=== PATIENT | female | born 1990 | race Caucasian/White ===

== ENCOUNTER 2017-05-12 15:46 | Emergency (ER) | payer BC ==
[~2017-05-12] VITALS: Ht 163.8 cm; Wt 111.0 kg
[~2017-05-12 15:46] MED LIST: NOHOMEMEDS; ZOFRAN4 MG PO
[2017-05-12 16:44] LABS: BASOPHIL COUNT 0.1 K/uL (0-0.1); EOSINOPHIL (%) 1.3 % (0-5); EOSINOPHIL COUNT 0.3 K/uL (0-0.3); HEMATOCRIT 44.3 % (36.0-46.0); IMMATURE GRANULOCYTE (%) 1.8 % (0.0-0.7); IMMATURE GRANULOCYTE COUNT 0.4 K/uL; INSTRUMENT ABS NEUTROPHIL CT 17.7 K/uL; LYMPHOCYTE COUNT 4.6 K/uL (1.0-2.8); MCH 31.9 PG (29.0-34.0); MCHC 33.4 G/DL (30.0-36.0); MCV 95.5 FL (83-99); MEAN PLAT.VOLUME 10.9 uM^3 (9.5-12.4); MONOCYTE (%) 4.8 % (3-12); MONOCYTE COUNT 1.2 K/uL (0-0.8); NEUTROPHIL (%) 72.6 % (45-76); NEUTROPHIL COUNT 17.7 K/uL (1.8-6.4); PLATELET COUNT 243 K/uL (156-360); RBC DIS.WIDTH-CV 12.8 % (11.8-14.6); RBC DIS.WIDTH-SD 44.4 % (39-53); RED BLOOD COUNT 4.64 M/uL (3.80-5.20); WHITE BLOOD COUNT 24.3 K/uL (4.1-10.2)
[2017-05-12 16:53] LABS: CHLORIDE 104 mEq/L (99-109); POTASSIUM 3.9 mEq/L (3.7-5.4); SODIUM 136 mEq/L (136-147)
[2017-05-12 16:54] LABS: GLUCOSE 122 mg/dL (70-99)
[2017-05-12 16:56] LABS: ANION GAP 8 MEQ/L (2-14)
[2017-05-12 16:58] LABS: GFR ESTIMATE (CALCULATED) > 59 mL/min/
[2017-05-12 16:59] LABS: UREA NITROGEN (BUN) 9 mg/dL (9-23)
[2017-05-12 17:06] LABS: QUANTITATIVE HCG < 4.0 MIU/ML
[2017-05-12] MEDS ORDERED: TRETINOIN20 G1 TP (20:03)
[2017-05-12] MEDS ORDERED: SPIRONOLACTONE100 MG PO (20:07)
[2017-05-12] MEDS ORDERED: SPIRONOLACTONE25 MG PO (20:07)
[2017-05-12] MEDS ORDERED: PROAIR HFA8.5 GM IH (20:08)
[2017-05-12] MEDS ORDERED: YAZ 28 TABLET1 EACH PO (20:09)
[2017-05-12] MEDS ORDERED: VISINE A.C300 DROP/1 BOTH EYES (20:09)
[2017-05-13 01:29] VITALS: BP 107/62
[2017-05-13 04:02] VITALS: BP 121/60
[2017-05-13 08:19] VITALS: BP 124/71
[2017-05-13 10:46] LABS: HEMATOCRIT 41.6 % (36.0-46.0); MCH 32.7 PG (29.0-34.0); MCHC 32.9 G/DL (30.0-36.0); MCV 99.3 FL (83-99); MEAN PLAT.VOLUME 11.5 uM^3 (9.5-12.4); PLATELET COUNT 221 K/uL (156-360); RED BLOOD COUNT 4.19 M/uL (3.80-5.20); WHITE BLOOD COUNT 20.5 K/uL (4.1-10.2)
[2017-05-13] MEDS ORDERED: PERCOCET 5/31 TABLET PO (13:02)
[2017-05-13] MEDS ORDERED: BACTRIM,SEPT1 TABLET PO (13:02)
[2017-05-13] MEDS ORDERED: MOTRIN600 MG PO (13:02)
[2017-05-13 16:26] VITALS: BP 124/75
[2017-05-14 00:11] VITALS: BP 114/64
[2017-05-14 06:42] LABS: HEMATOCRIT 39.3 % (36.0-46.0); MCH 32.5 PG (29.0-34.0); MCHC 32.3 G/DL (30.0-36.0); MCV 100.5 FL (83-99); MEAN PLAT.VOLUME 11.2 uM^3 (9.5-12.4); PLATELET COUNT 232 K/uL (156-360); RBC DIS.WIDTH-CV 13.2 % (11.8-14.6); RBC DIS.WIDTH-SD 47.8 % (39-53); RED BLOOD COUNT 3.91 M/uL (3.80-5.20); WHITE BLOOD COUNT 19.8 K/uL (4.1-10.2)
[2017-05-14 07:20] VITALS: BP 103/63
[2017-05-14 08:50] VITALS: BP 120/74
== END 2017-05-14 12:20 | disposition home or self-care (01) ==
LOC: EME 15:46 → EDOF 20:55 → 2EAST 20:55 → EDOF 20:55 → 2EAST 05-13 00:21
PROVIDERS: Physician Assistant; Physician Assistant Surgical
PROC: 0H9HXZZ Drainage of Right Upper Leg Skin, External Approach (ICD-10-PCS; principal; 2017-05-12)
DX: R65.10 Systemic inflammatory response syndrome (SIRS) of non-infectious origin without acute organ dysfunction (principal); L02.415 Cutaneous abscess of right lower limb; L03.115 Cellulitis of right lower limb; D72.829 Elevated white blood cell count, unspecified; L73.2 Hidradenitis suppurativa
CPT/HCPCS: 73701; 80048; 83605; 84702; 85025; 85027; 87040; 87070; 87075; 87076; 87205; 94640; 99281; 99285; G0378; J0330; J0690; J1100; J1170; J1200; J1650; J1885; J2405; J2543; J3010; J3370; J3480; J7030

== ENCOUNTER 2018-07-25 16:49 | Emergency (ER) | payer OTHER ==
[~2018-07-25] VITALS: Ht 162.6 cm; Wt 110.0 kg
[~2018-07-25 16:49] MED LIST changes: +BACTRIM,SEPT1 TABLET PO; +MOTRIN600 MG PO; +PERCOCET 5/31 TABLET PO; +PROAIR HFA8.5 GM IH; +SPIRONOLACTONE100 MG PO; +SPIRONOLACTONE25 MG PO; +TRETINOIN20 G1 TP; +VISINE A.C300 DROP/1 BOTH EYES; +YAZ 28 TABLET1 EACH PO
[2018-07-25 18:46] LABS: APPEARANCE SL.HAZY ((CLEAR)); BILIRUBIN NEGATIVE; BLOOD NEGATIVE; COLOR YELLOW ((YELLOW)); GLUCOSE (STRIP) NEGATIVE; KETONES 5; LEUKOCYTES TRACE; NITRITE NEGATIVE; PROTEIN (STRIP) 30; SPECIFIC GRAVITY 1.026 (1.000-1.030); UROBILINOGEN 0.2 MG/DL (0.2-1.0)
[2018-07-25 18:50] LABS: BACTERIA RARE /HPF; CALCIUM OXALATE CRYSTALS 1+ /HPF; EPITHELIAL CELLS 2+ /HPF; MUCUS 2+ /LPF; UCUL ADDED? NO; WHITE BLOOD CELLS 0-5 /HPF (0-5)
[2018-07-25] MEDS ORDERED: ZITHROMAX Z-PA250 MG PO (19:34)
[2018-07-25] MEDS ORDERED: VALIUM5 MG PO (19:34)
[2018-07-25] MEDS ORDERED: NORCO 5/3251 TABLET PO (19:34)
[2018-07-25 19:46] VITALS: BP 151/90
== END 2018-07-25 19:47 | disposition home or self-care (01) ==
LOC: EME 16:49
PROVIDERS: Physician Assistant
DX: M54.5 Low back pain (principal); G89.29 Other chronic pain; M62.830 Muscle spasm of back; R05 Cough
CPT/HCPCS: 71046; 81003; 81025; 99281; 99283; J3010